=== PATIENT | female | born 1990 | race Caucasian/White ===

== ENCOUNTER 2020-07-21 09:05 | Outpatient (REF) | payer OTHER, SELFPAY | END 2020-07-21 09:06 | disposition home or self-care (01) | LOC: HO.LAB 09:05 | PROVIDERS: Visit Provider Internal Medicine | DX: Z20.822 Contact with and (suspected) exposure to COVID-19 (principal) | CPT/HCPCS: 36415; C9803; U0003; U0005 ==

== ENCOUNTER 2024-03-10 09:04 | Emergency (ER) | payer OTHER, SELFPAY ==
--- NOTE | ~2024-03-10 | XR_ITS ---
EXAMINATION: XR CHEST CLINICAL INFORMATION: Cough COMPARISON: 10/12/2016 TECHNIQUE: Frontal view of the chest was obtained. FINDINGS: No focal consolidation, pulmonary edema, or pleural effusion. Stable cardiomediastinal silhouette. XR/XR chest 1V IMPRESSION: No acute cardiopulmonary findings. Electronically signed by: Mumtaz Gaviria MD 03/10/2024 10:42 AM EDT
[2024-03-10 09:07] VITALS: BP 143/85; PULSE 99; RESP 18; TEMP 36.9; O2SAT 95; BMI 42.3
[2024-03-10] MEDS: Ondansetron ODT 4 MG TAB.RAPDIS TRANSLINGU (09:34)
[2024-03-10 09:43] LABS: IDNOW Serial# 08D9AD1C; Strep A Nucleic Acid Positive (Negative)
--- NOTE | 2024-03-10 10:03 | ED_ITS ---
HPI - General Adult General Chief complaint: Upper Respiratory Symptoms Stated complaint: sob-cough Time Seen by Provider: 03/10/24 09:19 History of Present Illness ED Provider: Kelvin Paiz PA-C HPI narrative: 34 yold female with pmh bronchitits presents to the ED for coughing with green phelghm, sore throat, and feeling fatugye for a couple of days. 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 patient denies any leg swelling, calf pain, coughing up blood, pleurisy, recent long travel, recent surgery, any estrogen oral control pills. Related Data Previous Rx's ?Medication ?Instructions ?Recorded amoxicillin 875 mg-potassium 1 tab PO Q12H 10 days #20 tabs 03/10/24 clavulanate 125 mg tablet Allergies Allergy/AdvReac Type Severity Reaction Status Date / Time No Known Allergies Allergy Verified 03/10/24 09:09 Review of Systems Review of Systems: Coughing green phlegm, sore throat, fatigue Yes all other systems are reviewed and are negative [facility] Social History Social History Advance Directives: No Advance Directives Information Provided: No Do you have a plan to hurt others: No Plan Physical Exam ED Vital Signs: Vital Signs - 24 hr 03/10/24 09:07 03/10/24 11:12 03/10/24 11:16 Temperature 98.4 F 98.4 F Pulse Rate 99 99 99 Respiratory Rate 18 18 18 Blood Pressure 143/85 H 143/85 H Pulse Oximetry 95 95 Oxygen Delivery Method Room Air Room Air BMI result Body Mass Index 42.3 Const General: cooperative, healthy appearing, comfortable, no acute distress, well developed, alert and awake Orientation/consciousness: patient oriented x3 HENMT Head: Yes normal to inspection, Yes No palpable skull fracture present, Yes normocephalic and Yes atraumatic Ears: hearing grossly normal bilaterally, external ears normal, TM's normal bilaterally, TM normal on the right, TM normal on the left, EAC's normal, mastoids normal and no periauricular adenopathy Throat: Yes posterior oropharynx normal, Yes tonsils normal and Yes uvula midline Eyes General: appearance normal, both eyes and all related structures Neck Neck: Yes normal visual inspection, Yes full ROM, Yes no lymphadenopathy, Yes no meningeal signs, Yes trachea midline, Yes supple, No anterior neck swelling and No tender Chest Chest palpation & inspection: normal inspection of the chest and normal palpation of entire chest wall Resp Effort & Inspection: normal respiratory effort and able to speak in complete sentences Auscultation: wheezes expiratory wheezes Cardio Jugular venous distension: no JVD Heart sounds: S1 normal heart sound present and S2 normal heart sound present GI Inspection: Yes normal to inspection Palpation (GI): Soft to palpation, not firm, nontender, no guarding and not rigid General: Yes no CVA tenderness Back/Spine/Pelvis Back: no CVA tenderness and No back tenderness Skin General skin exam: no rashes or lesions noted, elasticity normal and turgor normal Neuro General: patient oriented x3, gait normal, tone normal, moves all extremities, Normal light touch and pain sensation, no meningeal signs, no focal motor deficits, CN's II-XI intact bilaterally and normal sensation to monofilament Extrem General: Yes normal to inspection, Yes full ROM and Yes capillary refill normal Psych Appearance: grossly normal, well kempt and not disheveled Medications Administered Discontinued Medications Generic Name Dose Route Start Last Admin Trade Name Freq PRN Reason Stop Dose Admin Albuterol Sulfate 4 puff 03/10/24 11:00 03/10/24 11:12 Albuterol Sulfate 90 Mcg 8 Gm Inhaler INHALE 03/10/24 11:01 4 puff ONCE ONE Administration Ondansetron HCl 4 mg 03/10/24 09:30 03/10/24 09:34 Ondansetron Odt 4 Mg Tab.Rapdis TRANSLINGU 03/10/24 09:31 4 mg ONCE ONE Administration Medical Decision Making Medical Decision Making [facility] Narrative: 34-year-old female history of bronchitis presents to the ED for coughing green phlegm, sore throat and fatigue for a couple of days. Patient states she was exposed to students with strep, and pneumonia. Presently vital signs are stable. We will sent for x-ray SARS and strep. 10:59pm: Chest x-ray negative pneumonia. Patient has positive strep. Oral exam negative for signs of peritonsillar abscess. COVID influenza RSV negative. Patient be treated as strep pharyngitis also bronchitis due to wheezing in the lungs. Differential Diagnosis Differential Diagnoses: The differential diagnosis associated with the presentation includes (Strep, COVID, or RSV, influenza, pneumonia) Admission/Observation Consideration of admission/observation: Escalation of care including admission/observation considered Lab Data MDM Lab Attestation statement: I reviewed the patient's lab results. Labs: Lab Results 03/10/24 Range/Units 09:30 Influenza Type A (PCR) NEGATIVE (Negative) Influenza Type B (PCR) NEGATIVE (Negative) RSV RNA Qual (PCR) NEGATIVE (Negative) SARS-CoV-2 RNA (RT-PCR) NEGATIVE (Negative) S. pyogenes GrpA CONRAD Positive A (Negative) Independent Interpretation I performed an independent interpretation of an: Plain X-Ray Radiology Impression Discussion of test interpretation with radiology: I have reviewed the radiologist's reading. Independent Historian Clinical information obtained from an independent historian. History obtained from or confirmed by: Other (patient) External Record Review External record reviewed: Other (Prior visits) Discharge Plan Discharge Clinical Impression: Strep pharyngitis, Bronchitis Patient Disposition: Home, Self-Care Instructions: Pharyngitis (ED), Strep Throat (ED), Acute Bronchitis (ED) Additional Instructions: Recommend follow-up with your primary care provider. You will be discharged with antibiotics for strep. Albuterol inhaler you were given in the ED can be used for wheezing and shortness of breath for a bronchitis. Return to ED immediately for any chest pain, shortness of breath, coughing up blood, drooling, change in voice, inability tolerate solid food/liquid, or any other concerning symptoms. Prescriptions: New amoxicillin-pot clavulanate 875-125 mg tablet 1 tab PO Q12H 10 Days Qty: 20 0RF Stand Alone Forms: Work/School Release Interventions: ED Discharge Assessment Last Done: 03/10/24 11:16 Discharge Date/Time: 03/10/24 11:17 Print Language: Malay
[2024-03-10 10:15] LABS: Influenza A PCR NEGATIVE (Negative); Influenza B PCR NEGATIVE (Negative); Resp Syncy Virus RNA Qual PCR NEGATIVE (Negative); SARS COV2 PCR INHOUSE NEGATIVE (Negative)
[2024-03-10 11:12] VITALS: PULSE 99; RESP 18; O2SAT 96
[2024-03-10] MEDS: Albuterol Sulfate 90 MCG 8 GM INHALER 4 PUFF INHALE (11:12)
[2024-03-10 11:16] VITALS: BP 143/85; PULSE 99; RESP 18; TEMP 36.9; O2SAT 95
== END 2024-03-10 11:17 | disposition home or self-care (01) ==
PROVIDERS: Physician Assistant; Emergency Provider Student in an Organized Health Care Education/Training Program
DX: J02.0 Streptococcal pharyngitis (principal); Z03.818 Encounter for observation for suspected exposure to other biological agents ruled out; R05.9 Cough, unspecified
CPT/HCPCS: 0241U; 71045; 87651; 94640; 94664; 99283; 99284

== ENCOUNTER 2024-11-12 17:25 | Emergency (ER) | payer OTHER, SELFPAY ==
[2024-11-12 17:33] VITALS: BP 111/53; PULSE 114; RESP 18; TEMP 35.6; O2SAT 94; BMI 35.6
[2024-11-12 17:38] VITALS: BP 114/66; PULSE 113; RESP 18; O2SAT 96
--- NOTE | 2024-11-12 17:41 | PC.NURSE ---
Patient presents from the parking lot after being found unresponsive in the car requiring narcan. Patient admits to substance abuse and states used heroin in the care, but also admits to meth and cocaine. States was trying to get into detox. Patient alert, crying, confused regarding what happened. Lungs clear bilat. Respirations even and non-labored. Abdomen soft, distended, non-tender with positive bowel sounds. Positive pedal pulses with no edema.
--- NOTE | 2024-11-12 17:47 | ED_ITS ---
HPI - General Adult General Chief complaint: ETOH/Substance Use Stated complaint: OD narcan given Time Seen by Provider: 11/12/24 17:32 History of Present Illness ED Provider: Dr. Arora HPI narrative: 34 y/o F patient; PMH recreational drug abuse; presents from the parking lot after being found unresponsive in her car. She was treated with narcan. After which the patient was able to explain that she was going to check into detox when she decided to snort heroin in the car first. She states she was actually interested in detox off meth, she states she does not usually use heroin. She denies alcohol use. She denies suicidal or homicidal ideation. She denies medical complaints. Related Data Previous Rx's ?Medication ?Instructions ?Recorded amoxicillin 875 mg-potassium 1 tab PO Q12H 10 days #20 tabs 03/10/24 clavulanate 125 mg tablet naloxone 4 mg/actuation nasal 4 mg intranasal Q2M PRN opioid 11/12/24 spray (Narcan) overdose #2 ea Allergies Allergy/AdvReac Type Severity Reaction Status Date / Time No Known Allergies Allergy Verified 11/12/24 17:36 Review of Systems Review of Systems: Yes all other systems are reviewed and are negative [facility] Past Medical History Attestation statement: The following information was validated with the patient. Source: unable to obtain Social History Social History Smoked in Last 30 Days: Yes Substance Use Type: Crack/Cocaine, Methamphetamine and Opiates Substance Use Frequency: Chronic Longstanding Last Used Substance: Just Prior to Admission Advance Directives: No Advance Directives Information Provided: No Physical Exam ED Vital Signs: Vital Signs - 24 hr 11/12/24 17:33 11/12/24 17:38 11/12/24 20:19 Temperature 96.0 F L 98.2 F Pulse Rate 114 H 113 H 109 H Respiratory Rate 18 18 18 Blood Pressure 111/53 L 114/66 114/77 Pulse Oximetry 94 96 97 Oxygen Delivery Method Room Air Room Air Room Air BMI result Body Mass Index 35.6 Patient is afebrile, tachycardic, normotensive. Const General: cooperative and no acute distress Orientation/consciousness: patient oriented x3 HENMT Head: Yes normal to inspection and Yes atraumatic Eyes General: appearance normal, both eyes and all related structures Pupils: Equal, round and reactive pupils present EOM: EOMs intact bilaterally Neck Neck: Yes normal visual inspection, Yes full ROM, Yes supple and No tender Chest Chest palpation & inspection: normal inspection of the chest and normal palpation of entire chest wall Resp Effort & Inspection: normal respiratory effort, able to speak in complete sentences, no cough and no respiratory distress Auscultation: clear to auscultation bilaterally Cardio Rate: regular rate Peripheral pulses: Peripheral pulses 2+ throughout GI Inspection: Yes normal to inspection, No Abdominal wall edema and No distended Palpation (GI): Soft to palpation, not firm, nontender, no guarding and not rigid Auscultation: normal bowel sounds Back/Spine/Pelvis Back: No back tenderness Neuro General: patient oriented x3 Cranial nerves: Yes Equal, round and reactive pupils present Course Course Course Narrative: Patient is afebrile and hemodynamically stable. Will plan to observe. Provided zofran and tylenol. Screening labs reviewed. Ethanol negative. Hcg negative. EKG is reassuring. Patient met with care team and declined services. Observed in the ED for approx 3 - 4 hours. Plan: Discharge to home with PCP follow up Return precautions given Rx Narcan sent to pharmacy Medications Administered Discontinued Medications Generic Name Dose Route Start Last Admin Trade Name Freq PRN Reason Stop Dose Admin Acetaminophen 975 mg 11/12/24 17:58 11/12/24 18:22 Acetaminophen 325 Mg Tablet PO 11/12/24 17:59 975 mg ONCE ONE Administration Ondansetron HCl 4 mg 11/12/24 17:58 11/12/24 18:23 Ondansetron Odt 4 Mg Tab.Rapdis TRANSLINGU 11/12/24 17:59 4 mg ONCE ONE Administration Medical Decision Making Lab Data Labs: Lab Results 11/12/24 Range/Units 18:27 Beta HCG, Quant < 2 mIU/mL Ethyl Alcohol < 10 mg/dL Independent Interpretation I performed an independent interpretation of an: EKG Interpretation: NSR 92BPM without ischemic changes, normal intervals Discharge Plan Discharge Clinical Impression: Heroin overdose Patient Disposition: Home, Self-Care Instructions: Prescription Narcotic Overdose (ED) Additional Instructions: You were seen today for a heroin overdose. A new prescription for Narcan was sent to your pharmacy. You declined detox services. Please follow up with your PCP within the next 1 - 2 days for re-evaluation and to discuss your recent emergency department visit. Return to the emergency department at anytime! Prescriptions: New naloxone [Narcan] 4 mg/actuation spray,non-aerosol 4 mg intranasal Q2M PRN (Reason: opioid overdose) Qty: 2 0RF Rx Instructions: spray 1 dose into ONE nostril; alternate nostrils w each dose until help arrives No Action amoxicillin-pot clavulanate 875-125 mg tablet 1 tab PO Q12H 10 Days Qty: 20 0RF Print Language: Hungarian
--- NOTE | 2024-11-12 17:58 | ECG_ITS ---
Test Reason : AAHYTHMIA Blood Pressure : */* mmHG Vent. Rate : 92 BPM Atrial Rate : 92 BPM P-R Int : 140 ms QRS Dur : 74 ms QT Int : 354 ms P-R-T Axes : 33 54 56 degrees QTcB Int : 437 ms Normal sinus rhythm with sinus arrhythmia Normal ECG No previous ECGs available Referred By: Anuradha Arora Electronically Signed By: ANDRY BULLOCK
[2024-11-12] MEDS: Acetaminophen 325 MG TABLET 975 MG PO (18:22)
[2024-11-12] MEDS: Ondansetron ODT 4 MG TAB.RAPDIS TRANSLINGU (18:23)
--- NOTE | 2024-11-12 18:53 | MHC.CARE ---
Recovery consult placed for Pt as Pt initially expressed she had been interested in detox for methamphetamines and crack/cocaine. Pt was found unresponsive in a car in [facility] parking lot and was administered Narcan. Pt reported that she had snorted Heroin. Upon T/W approach, Pt is irritable and awake. She denies wanting to speak to T/W and denies interest in going to detox. She minimizes her substance use expressing, detox didn't think I had enough drugs in my system and frankly I don't think it's a lot either. I don't like the burning feeling of detoxing off meth. Nope. Pt refused to speak further with T/W and requested discharge. Case was discussed with ED provider Anuradha Arora and CARE gas line installer supervisor Madison Hinkle [facility] who agreed that Pt would discharge with Narcan.
[2024-11-12 18:57] LABS: Ethanol < 10 mg/dL; HCG Quantitative < 2 mIU/mL
--- NOTE | 2024-11-12 19:14 | PC.NURSE ---
Assumed care of this Pt at this time. Pt changed over to hospital attire. Pt A&Ox3, reports chronic right shoulder pain. Pt denies SI/HI/AH/VH, declined detox/recovery. Pt given crackers per request.
[2024-11-12 20:19] VITALS: BP 114/77; PULSE 109; RESP 18; TEMP 36.8; O2SAT 97
[2024-11-12 20:26] VITALS: BP 114/77; PULSE 109; RESP 18; TEMP 36.8; O2SAT 97
== END 2024-11-12 20:37 | disposition home or self-care (01) ==
PROVIDERS: Emergency Provider Emergency Medicine
DX: T40.1X1A Poisoning by heroin, accidental (unintentional), initial encounter (principal); R40.4 Transient alteration of awareness; I49.9 Cardiac arrhythmia, unspecified; F14.10 Cocaine abuse, uncomplicated; Y92.9 Unspecified place or not applicable; Z51.81 Encounter for therapeutic drug level monitoring; Z79.899 Other long term (current) drug therapy
CPT/HCPCS: 36415; 80307; 84702; 93005; 99285

== ENCOUNTER → 2024-11-12 17:58 | Outpatient (BNV) | payer OTHER, SELFPAY | PROVIDERS: Emergency Provider Emergency Medicine; Visit Provider Internal Medicine | DX: I49.9 Cardiac arrhythmia, unspecified (principal) | CPT/HCPCS: 93010 ==

== ENCOUNTER 2025-03-19 03:10 | Emergency (ER) | payer OTHER, SELFPAY ==
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
[2025-03-19 03:14] VITALS: BP 140/65; BP 140/92; PULSE 101; PULSE 114; RESP 16; TEMP 36.6; O2SAT 100; BMI 28.3
--- OUTSIDE RECORDS SUMMARY | 2025-03-19 03:56 | XMS_ITS | Encounter Summary ---
Author Organization [facility] Address [address] [place] [phone] Phone Care Team Providers Care Test Case Developer Name Role Phone Brandy Oseguera NP Primary Care Provider Lawrence mercado Encounter Details Date Type Department Care Team (Late st Contact Info) Description 07/03/2015 Documentation EM Family Medicine [address] [place] [address] Family Medicine, Physician [address] [place] [address] Social History Tobacco Use Types Packs/Day Years Used Date Smoking Tobacco: Never Assessed Comments Unknown Sex and Gender Information Value Date Recorded Sex Assigned at Not on file Legal Sex Female 4:27 PM EDT Gender Identity Not on file Sexual Orientation Not on file documented as of this encounter Plan of Treatment Not on file documented as of this encounter Visit Diagnoses Not on filedocumented in this encounter Care Teams Test Case Developer Relationship Specialty Start Date End Date Brandy Oseguera NP PCP - General 01/17/17 10/03/22 documented as of this encounter
--- OUTSIDE RECORDS SUMMARY | 2025-03-19 03:56 | XMS_ITS | Clinical Summary ---
Author Organization [facility] Address [address] [place] [address] Phone Care Team Providers Care Plate And Frame Filter Operator Name Role Phone Unavailable Primary Care Provider Unavailabl e Immunizations Immunization Administration Dates Next Due DTP 10/14/1994, 2,01/14/1991,10/23,1990 HPV, Quadrivalent 11/07/2008 Hep B, ped/adol 04/19/1999,10/25/1998,10/13/1996 Hib (PRP-T) 04/05/1992,1990 IPV 12/14/1991, 1,1990,03/26 MMR 09/08/1995,04/05/1992 Meningococcal Conj (Menactra) MCV4P 11/07/2008 Td (adult) (MBL), 2 Lf tetan us toxoid, PF, adsorbed 02/22/2003 Tdap 11/07/2008 Social History Tobacco Use Types Packs/Day Years Used Date Smoking Tobacco: Never Assessed Comments Unknown Sex and Gender Information Value Date Recorded Sex Assigned at Not on file Legal Sex Female 4:27 PM EDT Gender Identity Not on file Sexual Orientation Not on file Plan of Treatment Health Maintenance Due Date Last Done Comments Varicella Vaccines (1 of 2 - 13+ 2-dose series) 2003 HPV Vaccines (2 - 3-dose series) 12/05/2008 11/07/2008 DTaP,Tdap,and Td Vaccines (7 - Td or Tdap) 11/07/2018 11/07/2008, 02/22/2003, 10/14/1994, Additional history exists Influenza Vaccines (#1) 2025 COVID-19 Vaccine ( season) 2025 IPV Vaccines Completed 12/14/1991, 0801/1991, 1990, Additional history exists HIB Vaccines Completed 04/05/1992, 1990 MMR Vaccines Completed 09/08/1995, 04/05/1992 Hepatitis B Vaccines Completed 04/19/1999, 10/25/1998, 10/13/1996 Meningococcal Vaccine Completed 11/07/2008 Hepatitis A Vaccines Aged Out No long er eligible based on patient's age to complete this topic Men B Vaccine Aged Out No longer elig ible based on patient's age to complete this topic Pneumococcal Vaccine Aged Out No long er eligible based on patient's age to complete this topic
--- OUTSIDE RECORDS SUMMARY | 2025-03-19 03:56 | XMS_ITS | Encounter Summary ---
Author Organization [facility] Address [address] [place] [phone] Phone Care Team Providers Care Loan Expeditor Name Role Phone Brandy Oseguera NP Primary Care Provider Lawrence mercado Encounter Details Date Type Department Care Team (Late st Contact Info) Description 01/23/2017 Conversion Encounter [facility] - [address] [phone] Social History Tobacco Use Types Packs/Day Years [...] on filedocumented in this encounter Care Teams Loan Expeditor Relationship Specialty Start Date End Date Brandy Oseguera NP PCP - General 01/17/17 10/03/22 documented as of this encounter
[2025-03-19 04:23] LABS: Appearance Urine Cloudy; Glucose Urine UA Negative (Negative); PH 6.0 (5.0-9.0); Specific Gravity - Urine >= 1.030 (1.005-1.025); UMIC TRIGGER UACC YES
[2025-03-19 04:24] LABS: UPreg QC Valid YES
[2025-03-19 04:25] LABS: UACC Culture Trigger YES
[2025-03-19] MEDS: Lidocaine HCl 1%/Epi 1:100,000 10 ML VIAL INFILTRATI (04:44)
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
[2025-03-19 06:12] VITALS: BP 100/56; PULSE 87; RESP 14; O2SAT 95
[2025-03-19 07:42] VITALS: BP 100/56; PULSE 87; RESP 14; TEMP 36.6; O2SAT 95
== END 2025-03-19 07:45 | disposition home or self-care (01) ==
PROVIDERS: Physician Assistant Medical; Emergency Provider Emergency Medicine
DX: S01.21XA Laceration without foreign body of nose, initial encounter (principal); R51.9 Headache, unspecified; Y04.2XXA Assault by strike against or bumped into by another person, initial encounter; Y93.9 Activity, unspecified; Y92.9 Unspecified place or not applicable; Y99.8 Other external cause status
CPT/HCPCS: 12011; 70486; 81001; 81025; 87086; 87088; 87186; 99284; J2004

== ENCOUNTER → 2025-03-19 04:10 | Outpatient (BNV) | payer OTHER, SELFPAY | PROVIDERS: Emergency Provider Emergency Medicine; Visit Provider Specialist | DX: S01.21XA Laceration without foreign body of nose, initial encounter (principal) | CPT/HCPCS: 70486 ==

== ENCOUNTER 2025-04-20 20:45 | Emergency (ER) | payer OTHER, SELFPAY ==
--- NOTE | ~2025-04-20 | XR_ITS ---
CLINICAL HISTORY: rib pain 1 view chest x-ray Comparison: CR/SR - XR CHEST 1 VIEW - 03/10/24 09:35 EDT Findings: The lungs are clear. Normal size heart. No acute fracture. IMPRESSION: 1. No acute findings. This document has been electronically signed by: Vanessa Rocha MD on 04/20/2025 22:04:10
[2025-04-20 20:53] VITALS: BP 140/76; PULSE 104; RESP 20; TEMP 36.7; O2SAT 99; BMI 29.3
--- OUTSIDE RECORDS SUMMARY | 2025-04-20 21:19 | XMS_ITS | Clinical Summary ---
Author Organization [facility] Address [address] [place] [address] Phone Care Team Providers Care Medical Transcription Name Role Phone Unavailable Primary Care Provider [...]
--- OUTSIDE RECORDS SUMMARY | 2025-04-20 21:19 | XMS_ITS | Encounter Summary ---
Author Organization [facility] Address [address] [place] [phone] Phone Care Team Providers Care Relief Charge Nurse Name Role Phone Brandy Oseguera NP Primary Care Provider Lawrence mercado Encounter Details Date Type Department Care Team (Late st Contact Info) Description 01/23/2017 Conversion Encounter [facility] - [address] [phone] Social History Tobacco Use Types Packs/Day Years [...] on filedocumented in this encounter Care Teams Relief Charge Nurse Relationship Specialty Start Date End Date Brandy Oseguera NP PCP - General 01/17/17 10/03/22 documented as of this encounter
--- OUTSIDE RECORDS SUMMARY | 2025-04-20 21:19 | XMS_ITS | Encounter Summary ---
Author Organization [facility] Address [address] [place] [phone] Phone Care Team Providers Care Caddy/Caddie Supervisor Name Role Phone Brandy Oseguera NP Primary Care Provider Lawrence mercado Encounter Details Date Type Department Care Team (Late st Contact Info) Description 07/03/2015 Documentation EM Family Medicine [address] [place] [address] Family Medicine, Physician [address] [place] [address] Social History Tobacco Use Types Packs/Day Years [...] on filedocumented in this encounter Care Teams Caddy/Caddie Supervisor Relationship Specialty Start Date End Date Brandy Oseguera NP PCP - General 01/17/17 10/03/22 documented as of this encounter
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
--- NOTE | 2025-04-20 22:30 | PC.NURSE ---
patient was noted to leave department by teacher education instructor, patient did not notify staff. primary brian kaba and kp chaidez aware.
== END 2025-04-20 22:31 | disposition left against medical advice (07) ==
PROVIDERS: Emergency Provider Emergency Medicine; PCP Nurse Practitioner Family
DX: R07.89 Other chest pain (principal)
CPT/HCPCS: 71045; 99283

== ENCOUNTER → 2025-04-20 21:20 | Outpatient (BNV) | payer OTHER, SELFPAY | PROVIDERS: Emergency Provider Emergency Medicine; PCP Nurse Practitioner Family; Visit Provider Radiology Diagnostic Radiology | DX: R07.89 Other chest pain (principal) | CPT/HCPCS: 71045 ==

== ENCOUNTER 2025-04-30 02:05 | Emergency (ER) | payer OTHER, SELFPAY ==
[2025-04-30 02:13] VITALS: BP 142/64; PULSE 104; O2SAT 96
[2025-04-30 02:21] VITALS: BP 147/82; PULSE 119; RESP 20; TEMP 36.4; O2SAT 98; BMI 33.7
--- NOTE | 2025-04-30 02:21 | ED.OVERDOSE ---
HPI - Overdose General Chief Complaint: Overdose Stated Complaint: OD PD gave narcan Time Seen by Provider: 04/30/25 02:14 Source: patient and EMS Mode of arrival: EMS Limitations: no limitations History of Present Illness ED Provider: Dr. Yumi Morley HPI Narrative: Patient comes to the emergency room via EMS and PD. Patient arriving awake, alert, arguing with PD EMS and nursing, belligerent. Seems that earlier today, patient overdose, witnessed by her boyfriend. PD was called, patient was given intranasal Narcan. Patient woke up immediately. On arrival to the ED, patient awake, alert, angry to be here. Denies SI or HI. Patient states this was an accident. Related Data Previous Rx's ?Medication ?Instructions ?Recorded amoxicillin 875 mg-potassium 1 tab PO Q12H 10 days #20 tabs 03/10/24 clavulanate 125 mg tablet naloxone 4 mg/actuation nasal 4 mg intranasal Q2M PRN opioid 11/12/24 spray (Narcan) overdose #2 ea cephalexin 500 mg capsule 500 mg PO Q12H #13 caps 03/19/25 phenazopyridine 200 mg tablet 200 mg PO TID PRN pain #10 tabs 03/19/25 (Pyridium) Allergies Allergy/AdvReac Type Severity Reaction Status Date / Time No Known Allergies Allergy Verified 04/30/25 02:22 [facility] Social History Social History Substance Use Type: Marijuana Advance Directives: No Advance Directives Information Provided: No Physical Exam Vital Signs: Vital Signs: Last Vital Signs Temp 97.5 F 04/30/25 02:21 Pulse 119 H 04/30/25 02:21 Resp 20 04/30/25 02:21 BP 147/82 H 04/30/25 02:21 Pulse Ox 98 04/30/25 02:21 O2 Del Method Room Air 04/30/25 02:21 BMI result Body Mass Index 33.7 Medical Decision Making Medical Decision Making [facility] Narrative: Patient is awake, alert and oriented x3, vitals stable, no SI no HI Patient declined any further medical assistance. Patient declined detox, declined talking to the care team. Patient was provided with home Narcan Section 12 is not Indicated at this time Discharge Plan Discharge Clinical Impression: Overdose Patient Disposition: Home, Self-Care Instructions: Adult Overdose (ED) Additional Instructions: Overdose You were seen in our Emergency Department for an overdose today. You received narcan in order to reverse the effects of overdose. Narcan only lasts about 45 min to 1 hour in the system. You may have been given narcan to take home with you today, please keep it near you if you are going to use again, so others can use it if needed.? The number one risk for fatal overdose is using alone? [employer] is a 30/12 hotline where you can be on the phone with someone while you use, and they can call for help if they suspect an overdose: [phone] Things to look out for when you leave include severe vomiting or diarrhea, headaches, muscle cramps, fever, coughing, chest pain, or if you feel so short of breath you cannot walk to the bathroom. Please seek care and return any time for worsening symptoms.? You may have been provided with safer injection?items, please take time to take care of YOU and your health. Use new supplies whenever possible to lessen the chances of infections and other illnesses.? If you need more supplies, please go [facility],? [address] [place] [address] OR you can call or text to coordinate delivery of safer supplies. If you decide you want to stop or cut down on how much you?re using, please call the numbers on the list provided to you or you can come to our outpatient Addiction Treatment office [facility] (M-F 9am-5p) [address] [place] [address], [address] [phone] Prescriptions: No Action amoxicillin-pot clavulanate 875-125 mg tablet 1 tab PO Q12H 10 Days Qty: 20 0RF cephalexin 500 mg capsule 500 mg PO Q12H Qty: 13 0RF phenazopyridine [Pyridium] 200 mg tablet 200 mg PO TID PRN (Reason: pain) Qty: 10 0RF naloxone [Narcan] 4 mg/actuation spray,non-aerosol 4 mg intranasal Q2M PRN (Reason: opioid overdose) Qty: 2 0RF Rx Instructions: spray 1 dose into ONE nostril; alternate nostrils w each dose until help arrives Print Language: Tunisian
--- NOTE | 2025-04-30 02:23 | PC.NURSE ---
Security to bedside per RN request to complete a safety search to ensure the pt does not have any additional contraband on her s/t her presenting complaint. Per security, drug paraphernallia, a pocket knife and a vape were found and secured with security. Pt calm and cooperative although short, as she continues to report that she will not be staying and wants to leave. MD aware and pt pending primary eval
--- OUTSIDE RECORDS SUMMARY | 2025-04-30 02:30 | XMS_ITS | Encounter Summary ---
Author Organization [facility] Address [address] [place] [phone] Phone Care Team Providers Care Hadoop Engineer Name Role Phone Brandy Oseguera NP Primary Care Provider Lawrence mercado Encounter Details Date Type Department Care Team (Late st Contact Info) Description 07/03/2015 Documentation EM Family Medicine [address] [place] [address] Family Medicine, Physician [address] [place] [address] Social History Tobacco Use Types Packs/Day Years [...] on filedocumented in this encounter Care Teams Hadoop Engineer Relationship Specialty Start Date End Date Brandy Oseguera NP PCP - General 01/17/17 10/03/22 documented as of this encounter
--- OUTSIDE RECORDS SUMMARY | 2025-04-30 02:30 | XMS_ITS | Clinical Summary ---
Author Organization [facility] Address [address] [place] [address] Phone Care Team Providers Care Continuous Improvement Black Belt Name Role Phone Unavailable Primary Care Provider [...]
--- OUTSIDE RECORDS SUMMARY | 2025-04-30 02:30 | XMS_ITS | Encounter Summary ---
Author Organization [facility] Address [address] [place] [phone] Phone Care Team Providers Care Glass Polisher Name Role Phone Brandy Oseguera NP Primary Care Provider Lawrence mercado Encounter Details Date Type Department Care Team (Late st Contact Info) Description 01/23/2017 Conversion Encounter [facility] - [address] [phone] Social History Tobacco Use Types Packs/Day Years [...] on filedocumented in this encounter Care Teams Glass Polisher Relationship Specialty Start Date End Date Brandy Oseguera NP PCP - General 01/17/17 10/03/22 documented as of this encounter
--- NOTE | 2025-04-30 02:41 | PC.NURSE ---
reports that when they initially presented to the bedside the pt was not able to be assessed/evaluated as she was noted to be on her cell phone. Pt could be heard having a conversation and saying things from her room, this RN went to bedside to speak with the pt. She expressed her frustration and concern regarding treatment and disposition. Pt aware that RN is awaiting the return of the provider to the desk/nurses station at which time the provider will be made aware that the pt is ready to be evaluated
[2025-04-30 03:31] VITALS: BP 147/82; PULSE 119; RESP 20; TEMP 36.4; O2SAT 98
--- NOTE | 2025-04-30 03:32 | PC.NURSE ---
Late entry for 0245. left the pt's room and the pt could be seen/noted scotching herself to the end of the bed. RN made the pt aware that there was take home raymon and mauricio paperwork that would be available to her momentarily to which she replied I don't want that shit adding that she just wants to leave. The pt was awake, alert, oriented, conversing freely and without distress noted. She was escorted to security where she was able to obtain her previously secured items and even/steady gait was noted at that time
== END 2025-04-30 02:45 | disposition home or self-care (01) ==
PROVIDERS: Emergency Provider Emergency Medicine
DX: T65.91XA Toxic effect of unspecified substance, accidental (unintentional), initial encounter (principal); Y92.9 Unspecified place or not applicable
CPT/HCPCS: 99284